=== PATIENT | female | born 1960 | race Caucasian/White ===

== ENCOUNTER → 2021-10-10 10:46 | Outpatient (BNVA) | payer MEDICAID, SELFPAY | PROVIDERS: Family Provider Family Medicine; PCP Family Medicine; Visit Provider Surgery | DX: R22.2 Localized swelling, mass and lump, trunk (principal) | CPT/HCPCS: 99203 ==

== ENCOUNTER 2021-11-06 09:26 | Day surgery (SDC) | payer MEDICAID, SELFPAY ==
[2021-11-05 11:30] VITALS: BMI 18.6
[2021-11-06] VITALS (7 sets, daily range): BP systolic 94–121; BP diastolic 48–77; PULSE 60–82; RESP 16–18; TEMP 36.2–36.7; O2SAT 93–96
[2021-11-06] MEDS: acetaminophen 1,000 MG/100 ML PIGGYBACK 400 MG IV (09:57)
[2021-11-06] MEDS: sodium chloride 0.9% 1,000 ML 30 ML IV (09:58)
--- NOTE | 2021-11-06 10:12 | ANES.PREANE2 ---
Pre-Anesthetic Assessment Height/Weight: Height 1.68 m Weight 52.163 kg Temp Pulse Resp BP Pulse Ox O2 Del Method 97.9 F 82 18 113/77 94 11/06/21 09:39 11/06/21 09:39 11/06/21 09:39 11/06/21 09:39 11/06/21 09:39 11/06/21 09:39 Preop Diagnosis: Lower back mass Operation Date: 11/06/21 10:50 Proposed Procedures p EXCISION OF BACK MASS 79376,D17.20(Not Applicable) - Oni Golden MD Familial anesthetic complications: None Was Beta Dylan taken within 24 hours: N/A Was Clonidine taken within 24 hours: N/A Last intake: Intake Last Liquid Date 11/05/21 Last Liquid Time 21:00 Last Solid Date 11/05/21 Last Solid Time 17:00 Social Tobacco and No alcohol Exam alert, oriented x 3, clear to auscultation bilaterally and regular rate & rhythm Airway Mallampati: Class II Dentition: false Pulmonary Chronic Obstructive Pulmonary Disease CV/HEM Arrythmia (fast heart rate- takes propanolol prn) Anesthetic Plan ASA status: 3 Anesthesia: MAC Risk of > 500 ml blood loss (7ml/kg in children): No Medications/Allergies Home Medications Medication Instructions Recorded Confirmed Last Taken Type docusate sodium 100 mg tablet 100 mg PO DAILY 04/02/21 11/06/21 11/04/21 History lorazepam 1 mg tablet 1 mg PO TID PRN anxiety 30 days 07/05/21 11/06/21 11/05/21 Rx #90 tabs gabapentin 300 mg capsule 300 mg PO TID #270 caps 10/08/21 11/06/21 11/05/21 Rx propranolol 20 mg tablet 20 mg PO BID PRN fast heart rate 10/08/21 11/06/21 11/04/21 Rx #60 tabs albuterol sulfate 90 mcg/actuation See Rx Instructions .Route 11/05/21 11/06/21 11/06/21 Rx aerosol inhaler (ProAir HFA) .COMPLEX #17 grams trazodone 50 mg tablet See Rx Instructions .Route 11/05/21 11/06/21 11/05/21 Rx .COMPLEX #90 tabs Allergies Allergy/AdvReac Type Severity Reaction Status Date / Time No Known Allergies Allergy Verified 11/06/21 09:37 Current Medications Generic Name Dose Route Start Last Admin Trade Name Allen PRN Reason Stop Dose Admin Sodium Chloride 1,000 mls @ 30 mls/hr 11/06/21 09:30 11/06/21 09:58 Sodium Chloride 0.9% IV 11/07/21 09:29 30 mls/hr .Q24H JOHNY Administration PFSH Anesthesia Medical History Anxiety COPD (chronic obstructive pulmonary disease) Depression History of migraine Hx of fracture of wrist Polyarthralgia Family History Other Cancer Social History Smoking and tobacco status: current some day smoker Alcohol intake: never Data Anesthesia Cardiac Studies: No Data to Display
--- NOTE | 2021-11-06 10:33 | W.PM.OPSUD ---
Surgery/Procedure H&P Update DATE OF PROCEDURE: November 06, 2021 DATE H&P PERFORMED: 10/10/21 H&P UPDATE INFORMATION: I have reviewed H&P completed within last 30 days, I have examined patient prior to procedure and No changes to prior documentation PREOP DIAGNOSIS: Lower back mass PRIMARY INDICATION FOR PROCEDURE: The same PLANNED PROCEDURE: Operation Date: 11/06/21 10:50 Proposed Procedures p EXCISION OF BACK MASS 84792,D17.20(Not Applicable) - Oni Golden MD
--- NOTE | 2021-11-06 11:13 | P.OP_ITS ---
Operative Report Date of procedure: November 06, 2021 Pre-op diagnosis: Preop Diagnosis Lower back mass Post-op diagnosis: Right lower back sebaceous cyst Procedure done: 1-Excision of right lower back mass including a previous scar 2-Elevation of bilateral flaps to the subcutaneous and muscular fascial layer Specimens removed/disposition: Right lower back mass short sutures superior and long sutures right lateral Surgeon: Oni Golden MD Patient Financial Services Specialist: pc maintenance technician Emily Circulating nurse Nery Belcher Anesthesia: MAC (OPERATIONS TEAM LEADER Brooke and OPERATIONS TEAM LEADER student Brayan) Estimated blood loss (mL): 5 Procedure: After identifying the patient holding area, the correct site and side was marked before the procedure by myself which is the right lower back mass in the presence of female steel erector apprentice nursing staff Nery, patient was then taken to the operative suite, was placed in left lateral position, IV propofol was infused by the anesthesia provider ,Timeout was done verifying the patient's name/date of /planned procedure and destination after the procedure, all were in agreement. SCDs confirmed to be functioning, preoperative antibiotics administered per protocol, and beta wendy protocol was confirmed Prep and drape of the right lower back region was done under the usual sterile technique. Local anesthesia 1% lidocaine was infiltrated site of the incision, elliptical skin incision was done including the previous scar,incision was done all the way down to the subcutaneous tissues dissection was then carried on after further dissection revealed to be a sebaceous cyst about 5 cm in diameter, the mass was oriented by 3-0 nylon sutures in the form of short superior and long right lateral sutures. Undermining dissection for the bilateral flaps were created all the way to the subcutaneous and muscular fascial layer in order to close the wound without applying tension ,Hemostasis was achieved using Bovie cautery, followed by irrigation with normal saline, 2-0 Vicryl were used as a continue subdermal sutures followed by subcuticular 4-0 Monocryl were used, followed by surgical glue, then Telfa and Tegaderm followed by pressure dressing. Count was completed at the end of the procedure Patient was taken to the recovery room in stable condition I was present for the whole entire procedure
[2021-11-06] MEDS: HYDROcodone-acetaminophen 5-325 mg Tablet 1 TAB PO (11:54)
--- NOTE | 2021-11-06 14:51 | ANE.PACU2 ---
Inpatient post-anesthesia follow up: Airway intact: Yes Vital signs: Temperature 98.1 F Pulse Rate 61 Respiratory Rate 18 Blood Pressure 121/67 Pulse Oximetry 94 Oxygen Delivery Me thod Room Air Oxygen Flow Rate 6 Fraction of Inspir ed Oxygen Hydration adequate: Yes Nausea and vomiting: No Pain level: 1 Mental status: Baseline
== END 2021-11-06 12:26 | disposition home or self-care (01) ==
PROVIDERS: PCP Family Medicine; Visit Provider Surgery
PROC: (CPT 13101; principal; 2021-11-06 10:40)
DX: L72.0 Epidermal cyst (principal); J44.9 Chronic obstructive pulmonary disease, unspecified; F41.9 Anxiety disorder, unspecified; F32.A Depression, unspecified; F17.210 Nicotine dependence, cigarettes, uncomplicated
CPT/HCPCS: 13101; 21931; 88307; J2250; J2704; J3010; J7030

== ENCOUNTER → 2022-09-16 11:36 | Outpatient (BNVA) | payer SELFPAY | PROVIDERS: PCP Family Medicine; Visit Provider Family Medicine | DX: E53.8 Deficiency of other specified B group vitamins (principal); E03.9 Hypothyroidism, unspecified | CPT/HCPCS: 80053; 82607; 84443; 85025 ==